=== PATIENT | male | born 1960 | race Caucasian/White ===

== ENCOUNTER 2016-05-13 12:57 | Emergency (ER) | payer OTHER ==
[~2016-05-13] VITALS: Ht 172.7 cm; Wt 91.5 kg
[2016-05-13] MEDS ORDERED: HYDR-308 PO (13:07)
[2016-05-13 13:46] LABS: BASOPHILS # (AUTO) 0.07 K/uL (0.00-0.20); BASOPHILS % (AUTO) 1.1 % (0.0-2.0); EOSINOPHILS # (AUTO) 0.08 K/uL (0.00-0.70); EOSINOPHILS % (AUTO) 1.35 % (1.0-6.0); HEMATOCRIT 43.6 % (41-53); HEMOGLOBIN 14.7 g/dL (13.5-17.5); LYMPHOCYTES # (AUTO) 1.3 K/uL (1.0-4.8); LYMPHOCYTES % (AUTO) 21.4 % (22.0-44.0); MEAN CORPUSCULAR HEMOGLOBIN 31.5 pg (26.0-34.0); MEAN CORPUSCULAR HGB CONC 33.8 G/dL (31.0-37.0); MEAN CORPUSCULAR VOLUME 93 fL (80-100); MONOCYTES # (AUTO) 0.4 K/uL (0.1-1.0); MONOCYTES % (AUTO) 6.8 % (2.0-9.0); NEUTROPHILS # (AUTO) 4.3 K/uL (1.8-7.7); NEUTROPHILS % (AUTO) 69.4 % (40.0-70.0); PLATELET COUNT (AUTO) 370 K/uL (150-450); RED BLOOD CELL COUNT(AUTO) 4.67 MIL/uL (4.50-5.90); RED CELL DISTRIBUTION WIDTH 13.6 % (11.5-14.5); WHITE BLOOD COUNT (AUTO) 6.1 K/uL (4.5-11.0)
[2016-05-13 13:57] LABS: ANION GAP 9 mmol/L (8-16); CALCIUM, TOTAL 9.2 mg/dL (8.8-10.5); CARBON DIOXIDE 28 mmol/L (22-29); CHLORIDE 101 mmol/L (98-107); CREATININE 1.01 mg/dL (0.60-1.30); GLOMERULAR FILTR. RATE CALC > 60 mL/min (>60); POTASSIUM 4.1 mmol/L (3.5-5.1); SODIUM SERUM 138 mmol/L (136-145); UREA NITROGEN, BLOOD 16 mg/dL (7-18)
[2016-05-13 14:03] LABS: ALANINE AMINOTRANSFERASE 29 U/L (12-78); ALBUMIN 3.7 g/dL (3.4-5.0); ASPARTATE AMINOTRANSFERASE 13 U/L (15-37); BILIRUBIN,TOTAL 0.3 mg/dL (0.1-1.0); TOTAL PROTEIN, SERUM 7.5 g/dL (6.4-8.2)
[2016-05-13] MEDS ORDERED: HYDROCODONE/ACETAMINOPHEN 5-325 MG TABLET PO ONE (15:00)
[2016-05-13] MEDS ORDERED: CYCLOBENZAPRINE HCL 10 MG TABLET PO ONE (15:45)
[2016-05-13] MEDS ORDERED: MORPHINE SULFATE 4 MG/ML SYRINGE IM ONE (15:45)
[2016-05-13] MEDS ORDERED: ONDANSETRON HCL 4 MG/2 ML VIAL IM ONE (15:45)
[2016-05-13 16:05] LABS: APPEARANCE,URINE CLEAR (CLEAR); GLUCOSE, URINE (UA) NEGATIVE (NEGATIVE); KETONES,URINE TRACE mg/dL (NEGATIVE); LEUKOCYTE ESTERASE ,URINE NEGATIVE (NEGATIVE); OCCULT BLOOD,URINE NEGATIVE (NEGATIVE); PROTEIN,URINE NEGATIVE (NEGATIVE)
[2016-05-13 16:06] LABS: ADD UA MICROSCOPIC NO
[2016-05-13 16:55] VITALS: BP 125/72
== END 2016-05-13 17:07 | disposition home or self-care (01) ==
LOC: EMS 12:59
DX: G89.29 Other chronic pain (principal); M54.5 Low back pain; J45.909 Unspecified asthma, uncomplicated
CPT/HCPCS: 36415; 80053; 80307; 81003; 83690; 85025; 96372; 99284; J2270; J2405

== ENCOUNTER 2022-10-05 13:19 | Emergency (ER) | payer OTHER ==
[~2022-10-05] VITALS: Ht 170.2 cm; Wt 104.9 kg
[~2022-10-05 13:19] MED LIST: HYDR-308 PO
[2022-10-05] MEDS ORDERED: NITR0.4T50 SL (13:27)
[2022-10-05] MEDS ORDERED: BUPR75FI3 SL (13:27)
[2022-10-05] MEDS ORDERED: METO-408 PO (13:27)
[2022-10-05] MEDS ORDERED: AMLO10TA55 PO (13:27)
[2022-10-05] MEDS ORDERED: MORPHINE SULFATE 4 MG/ML SYRINGE IVP ONE (13:45)
[2022-10-05] MEDS ORDERED: ONDANSETRON HCL 4 MG/2 ML VIAL IVP ONE (13:45)
[2022-10-05 14:06] LABS: EOSINOPHILS % (AUTO) 2.5 % (1.0-6.0); HEMATOCRIT 40.8 % (41-53); HEMOGLOBIN 13.7 g/dL (13.5-17.5); LYMPHOCYTES # (AUTO) 1.6 K/uL (1.0-4.8); LYMPHOCYTES % (AUTO) 32.4 % (22.0-44.0); MEAN CORPUSCULAR HEMOGLOBIN 32.8 pg (26.0-34.0); MEAN CORPUSCULAR HGB CONC 33.6 G/dL (31.0-37.0); MEAN CORPUSCULAR VOLUME 98 fL (80-100); MONOCYTES # (AUTO) 0.5 K/uL (0.1-1.0); MONOCYTES % (AUTO) 10.7 % (2.0-9.0); NEUTROPHILS # (AUTO) 2.7 K/uL (1.8-7.7); NEUTROPHILS % (AUTO) 53.4 % (40.0-70.0); PLATELET COUNT (AUTO) 277 K/uL (150-450); RED BLOOD CELL COUNT(AUTO) 4.18 MIL/uL (4.50-5.90); RED CELL DISTRIBUTION WIDTH 13.8 % (11.5-14.5)
[2022-10-05 14:14] LABS: ANION GAP 7 mmol/L (8-16); CALCIUM, TOTAL 8.4 mg/dL (8.8-10.5); CARBON DIOXIDE 28 mmol/L (22-29); CHLORIDE 105 mmol/L (98-107); CREATININE 0.85 mg/dL (0.60-1.30); GLOMERULAR FILTR. RATE CALC > 60 mL/min (>60); GLUCOSE,RANDOM 104 mg/dL (70-110); SODIUM SERUM 140 mmol/L (136-145)
[2022-10-05 14:17] LABS: B-TYPE NATRIURETIC PEPTIDE 9 pg/mL (0-100); PROTHROMBIN TIME 10.4 SEC (9.4-11.6)
[2022-10-05 14:18] LABS: ALANINE AMINOTRANSFERASE 59 U/L (12-78); ALBUMIN 3.6 g/dL (3.4-5.0); ALKALINE PHOSPHATASE 67 U/L (46-116); ASPARTATE AMINOTRANSFERASE 28 U/L (15-37); BILIRUBIN,TOTAL 0.3 mg/dL (0.1-1.0)
[2022-10-05] MEDS ORDERED: IOHEXOL 350 MG/ML 100 ML VIAL ONE (14:21)
[2022-10-05] MEDS ORDERED: SODIUM CHLORIDE 0.9% 100 ML ONE (14:21)
[2022-10-05 17:30] VITALS: BP 114/88; PULSE 72; RESP 15
[2022-10-05] MEDS ORDERED: OxyCODONE HCL/ACETAMINOPHEN 5-325 MG TABLET PO ONE (18:00)
[2022-10-05] MEDS ORDERED: KETOROLAC TROMETHAMINE 30 MG/ML VIAL IVP ONE (18:00)
[2022-10-05] MEDS ORDERED: OXYC-43 PO (18:52)
== END 2022-10-05 19:09 | disposition home or self-care (01) ==
LOC: EMS 13:19
DX: G89.29 Other chronic pain (principal); M54.50 Low back pain, unspecified; J45.909 Unspecified asthma, uncomplicated; Z90.49 Acquired absence of other specified parts of digestive tract
CPT/HCPCS: 99285; 71260; 96374; 71045; 96375; 80053; 83880; 84484; 85025; 85610; 85730; 74160; 93005; 72193; J1885; J2270; J2405; Q9967; J7050

== ENCOUNTER 2022-12-06 20:52 | Emergency (ER) | payer OTHER ==
[~2022-12-06] VITALS: Ht 172.7 cm; Wt 100.0 kg
[~2022-12-06 20:52] MED LIST changes: +AMLO10TA55 PO; +BUPR75FI3 SL; +METO-408 PO; +NITR0.4T50 SL; +OXYC-43 PO
[2022-12-06 22:45] VITALS: TEMP 99.4
[2022-12-06] MEDS ORDERED: ONDANSETRON HCL 4 MG/2 ML VIAL IVP ONE (23:00)
[2022-12-06] MEDS ORDERED: MORPHINE SULFATE 4 MG/ML SYRINGE IVP ONE (23:00)
[2022-12-06 23:19] LABS: BASOPHILS % (AUTO) 0.5 % (0.0-2.0); EOSINOPHILS % (AUTO) 1.3 % (1.0-6.0); HEMATOCRIT 38.6 % (41-53); HEMOGLOBIN 12.5 g/dL (13.5-17.5); LYMPHOCYTES # (AUTO) 1.6 K/uL (1.0-4.8); MEAN CORPUSCULAR HEMOGLOBIN 30.8 pg (26.0-34.0); MEAN CORPUSCULAR HGB CONC 32.5 G/dL (31.0-37.0); MEAN CORPUSCULAR VOLUME 95 fL (80-100); MONOCYTES % (AUTO) 12.7 % (2.0-9.0); NEUTROPHILS # (AUTO) 5.5 K/uL (1.8-7.7); NEUTROPHILS % (AUTO) 66.5 % (40.0-70.0); PLATELET COUNT (AUTO) 290 K/uL (150-450); RED BLOOD CELL COUNT(AUTO) 4.07 MIL/uL (4.50-5.90); RED CELL DISTRIBUTION WIDTH 13.6 % (11.5-14.5); WHITE BLOOD COUNT (AUTO) 8.2 K/uL (4.5-11.0)
[2022-12-06 23:26] LABS: APPEARANCE,URINE HAZY (CLEAR); BILIRUBIN,URINE NEGATIVE (NEGATIVE); COLOR,URINE YELLOW (YELLOW); GLUCOSE, URINE (UA) NEGATIVE (NEGATIVE); KETONES,URINE NEGATIVE (NEGATIVE); LEUKOCYTE ESTERASE ,URINE LARGE (NEGATIVE); NITRATE,URINE POSITIVE (NEGATIVE); OCCULT BLOOD,URINE NEGATIVE (NEGATIVE); PH,URINE 5.5 (5.0-8.0); PROTEIN,URINE 30-70 mg/dL (NEGATIVE); SPECIFIC GRAVITIY, URINE 1.019 (1.003-1.030); UROBILINOGEN,URINE <=1.0 mg/dL (<=1.0)
[2022-12-06 23:28] LABS: ANION GAP 11 mmol/L (8-16); CALCIUM, TOTAL 8.6 mg/dL (8.8-10.5); CARBON DIOXIDE 25 mmol/L (22-29); CHLORIDE 102 mmol/L (98-107); CREATININE 0.88 mg/dL (0.60-1.30); GLOMERULAR FILTR. RATE CALC > 60 mL/min (>60); GLUCOSE,RANDOM 95 mg/dL (70-110); POTASSIUM 3.8 mmol/L (3.5-5.1); SODIUM SERUM 138 mmol/L (136-145); UREA NITROGEN, BLOOD 13 mg/dL (7-18)
[2022-12-06 23:38] LABS: BACTERIA,URINE Few /HPF (None Seen); RBC,URINE None Seen /HPF (0-2); SQUAMOUS EPITHELIAL CELL,UR None Seen /LPF (None Seen); WBC,URINE 26-50 /HPF (0-5)
[2022-12-07] MEDS ORDERED: DOXY-354 PO (03:22)
[2022-12-07] MEDS ORDERED: IBUP-1492 PO (03:22)
[2022-12-07] MEDS ORDERED: LEVO-72 PO (03:22)
[2022-12-07] MEDS ORDERED: MORPHINE SULFATE 4 MG/ML SYRINGE IVP ONE (03:30)
[2022-12-07] MEDS ORDERED: CefTRIAXone SODIUM 1 GM/VIAL IM ONE (03:30)
[2022-12-07] MEDS ORDERED: LIDOCAINE/PF 1% 2 ML VIAL IM ONE (03:30)
[2022-12-07] MEDS ORDERED: KETOROLAC TROMETHAMINE 30 MG/ML VIAL IVP ONE (03:30)
[2022-12-07 03:49] VITALS: BP 151/96; PULSE 92; RESP 22
== END 2022-12-07 04:00 | disposition home or self-care (01) ==
LOC: EMS 20:52
DX: N45.1 Epididymitis (principal); J45.909 Unspecified asthma, uncomplicated; G89.29 Other chronic pain; M54.9 Dorsalgia, unspecified; Z90.49 Acquired absence of other specified parts of digestive tract
CPT/HCPCS: 99285; 96374; 96375; 80048; 81001; 85025; 36415; 87086; 87186; 76870; 87491; 87591; 96361; J2270 ×2; J2405; J0696; J1885; J3490; J7030

== ENCOUNTER 2022-12-08 20:42 | Emergency (ER) | payer OTHER ==
[~2022-12-08] VITALS: Ht 170.2 cm; Wt 104.5 kg
[~2022-12-08 20:42] MED LIST changes: -BUPR75FI3 SL; +DOXY-354 PO; -HYDR-308 PO; +IBUP-1492 PO; +LEVO-72 PO; -OXYC-43 PO
[2022-12-08 21:38] VITALS: BP 132/70; PULSE 79; RESP 24; TEMP 97.3
== END 2022-12-08 21:50 | disposition home or self-care (01) ==
LOC: EMS 20:43
DX: N45.1 Epididymitis (principal); J45.909 Unspecified asthma, uncomplicated; G89.29 Other chronic pain; M54.9 Dorsalgia, unspecified; Z90.49 Acquired absence of other specified parts of digestive tract
CPT/HCPCS: 99281; Z7502